=== PATIENT | male | born 1950 | race American Indian/Alaskan Native ===

== ENCOUNTER 2025-01-08 13:15 | Outpatient (CLI) | payer MEDICARE, SELFPAY | END 2025-01-08 13:16 | disposition home or self-care (01) | LOC: AMB 01-09 09:20 | PROVIDERS: Visit Provider Emergency Medicine Emergency Medical Services | DX: S09.90XA Unspecified injury of head, initial encounter (principal); S29.9XXA Unspecified injury of thorax, initial encounter; V49.9XXA Car occupant (driver) (passenger) injured in unspecified traffic accident, initial encounter; Y92.411 Interstate highway as the place of occurrence of the external cause | CPT/HCPCS: A0425; A0433 ==